=== PATIENT | male | born 1995 | race Two or more races ===

== ENCOUNTER 2017-08-15 11:07 | Emergency (ER) | payer OTHER ==
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
== END 2017-08-15 13:32 | disposition home or self-care (01) ==
LOC: VM.ED 11:07
DX: M62.838 Other muscle spasm (principal); M62.830 Muscle spasm of back; M54.2 Cervicalgia; M54.6 Pain in thoracic spine; V89.2XXA Person injured in unspecified motor-vehicle accident, traffic, initial encounter
CPT/HCPCS: 72125; 72128; 72131; 99284